=== PATIENT | female | born 1955 | race African-American/Black ===

== ENCOUNTER 2016-11-24 08:10 | Day surgery (SDC) | payer MEDICARE, MEDICAID ==
[~2016-11-24] VITALS: Ht 167.6 cm; Wt 62.1 kg
[2016-11-24] MEDS ORDERED: ASPI-1159 PO (08:35)
[2016-11-24] MEDS ORDERED: CINA30 PO (08:35)
[2016-11-24] MEDS ORDERED: MINO2.5T19 PO (08:35)
[2016-11-24] MEDS ORDERED: TEMA30CA PO (08:35)
[2016-11-24] MEDS ORDERED: AMIO100T4 PO (08:35)
[2016-11-24] MEDS ORDERED: HYDR-4133 PO (08:35)
[2016-11-24] MEDS ORDERED: CLON2TAB4 PO (08:35)
[2016-11-24] MEDS ORDERED: SEVE800T8 PO (08:35)
[2016-11-24] MEDS ORDERED: OMEP20CA10 PO (08:35)
[2016-11-24] MEDS ORDERED: DOCU-150 PO (08:35)
[2016-11-24] MEDS ORDERED: DILT240C92 PO (08:35)
[2016-11-24] MEDS ORDERED: DEXL30CA3 PO (08:44)
[2016-11-24] MEDS ORDERED: OCD PO (08:46)
[2016-11-24 09:32] LABS: EOSINOPHILS % 4.2 % (0.0-5.0); HEMATOCRIT. 36.9 % (36.0-48.0); HEMOGLOBIN. 12.4 g/dL (12.0-16.0); LYMPHOCYTES % 29.8 % (20.0-50.0); MEAN CORPUSCULAR HEMOGLOBIN 32.4 pg (28.0-32.0); MEAN CORPUSCULAR VOLUME 96.6 fL (81.0-99.0); MEAN PLATELET VOLUME 8.5 fl (7.4-10.4); MONOCYTES % 11.3 % (2.0-8.0); NEUTROPHILS % 53.7 % (40.0-76.0); PLATELET 136 x1000/uL (130-400); RED BLOOD CELL COUNT 3.82 mill/uL (4.2-5.4); RED CELL DISTRIBUTION WIDTH 14.5 % (11.6-14.6)
[2016-11-24] MEDS ORDERED: SODIUM CHLORIDE 0.9% 500 ML IV ONE (09:40)
[2016-11-24] MEDS ORDERED: PROPOFOL 200MG/20ML VIAL IV ONE (10:35)
[2016-11-24] MEDS ORDERED: LIDOCAINE HCL 1% 20ML VIAL (Pyxis) INJ ONE (10:35)
[2016-11-24] MEDS ORDERED: SIMETHICONE 40 MG/0.6 ML 30ML ONE (10:41)
[2016-11-24] MEDS ORDERED: MORPHINE SULFATE 2 MG/ML CPJ (NOT FOR IM USE) IV PRN (11:15)
== END 2016-11-24 12:05 | disposition home or self-care (01) ==
LOC: OR 08:10
PROVIDERS: ATTEND Internal Medicine Gastroenterology
DX: K29.50 Unspecified chronic gastritis without bleeding (principal); K21.9 Gastro-esophageal reflux disease without esophagitis; K44.9 Diaphragmatic hernia without obstruction or gangrene; I48.91 Unspecified atrial fibrillation; I50.9 Heart failure, unspecified; I12.0 Hypertensive chronic kidney disease with stage 5 chronic kidney disease or end stage renal disease; N18.6 End stage renal disease; F32.89 Other specified depressive episodes; Z86.73 Personal history of transient ischemic attack (TIA), and cerebral infarction without residual deficits
CPT/HCPCS: 36415; 43239; 80048; 85025; 88305; 88312; 88313; 93005; J3490; J7040; J2704

== ENCOUNTER 2018-11-17 14:43 | Inpatient (IN) | payer MEDICARE, MEDICAID ==
[~2018-11-17] VITALS: Ht 167.6 cm; Wt 64.5 kg
[~2018-11-17 14:43] MED LIST: AMIO100T4 PO; ASPI-1159 PO; CINA30 PO; CLON2TAB11 PO; DEXL30CA3 PO; DILT240C92 PO; DOCU-150 PO; HYDR-4133 PO; MINO2.5T19 PO; OCD PO; OMEP20CA10 PO; SEVE800T8 PO; TEMA30CA PO
[2018-11-17 15:45] LABS: EOSINOPHILS % 6.3 % (0.0-5.0); HEMATOCRIT. 29.3 % (36.0-48.0); HEMOGLOBIN. 9.7 g/dL (12.0-16.0); LYMPHOCYTES % 8.5 % (20.0-50.0); MEAN CORPUSCULAR HEMOGLOBIN 31.9 pg (28.0-32.0); MEAN CORPUSCULAR VOLUME 96.8 fL (81.0-99.0); MEAN PLATELET VOLUME 8.1 fl (7.4-10.4); MONOCYTES % 6.9 % (2.0-8.0); NEUTROPHILS % 78.3 % (40.0-76.0); PLATELET 263 x1000/uL (130-400); RED BLOOD CELL COUNT 3.02 mill/uL (4.2-5.4); RED CELL DISTRIBUTION WIDTH 14.8 % (11.6-14.6)
[2018-11-17 15:49] LABS: CHLORIDE 99 mEq/L (98-107)
[2018-11-17 15:51] LABS: INR 1.2
[2018-11-17] MEDS ORDERED: VANCOMYCIN 1 G PREMIX 200 ML IV NR (16:15)
[2018-11-17] MEDS ORDERED: PIPERACILLIN/TAZOBACTAM 3.375GM/50ML PREMIX IV ONE (16:15)
[2018-11-17] MEDS ORDERED: PIPERACILLIN/TAZ 3.375G PREMIX 50 ML IV NR (16:30)
[2018-11-17] MEDS ORDERED: SODIUM CHLORIDE 0.9% 1,000 ML IV ONE ×2 (18:15→19:15)
[2018-11-17] MEDS: HYDROCODONE/ACETAMINOPHEN 5/325MG TABLET PO PRN (20:51)
[2018-11-17] MEDS ORDERED: GUAIFENESIN 200MG/10ML SUGAR FREE UDC PO PRN (22:00)
[2018-11-17] MEDS ORDERED: IPRATROPIUM/ALBUTEROL 0.5-3(2.5)MG/3ML NEB INH PRN (22:00)
[2018-11-17] MEDS ORDERED: CLONIDINE 0.1MG TABLET PO PRN (22:00)
[2018-11-17] MEDS ORDERED: ONDANSETRON HCL 4MG/2ML INJ IV PRN (22:00)
[2018-11-17] MEDS ORDERED: DIPHENHYDRAMINE 50MG/ML VIAL IV PRN (22:00)
[2018-11-17] MEDS ORDERED: AMIO100T4 PO (23:03)
[2018-11-17] MEDS ORDERED: FAMO40TA70 MT (23:23)
[2018-11-17] MEDS ORDERED: CALC-1042 PO (23:23)
[2018-11-17] MEDS ORDERED: APIX2.5T MT (23:23)
[2018-11-17] MEDS ORDERED: DIPH50CA4 PO (23:23)
[2018-11-17] MEDS ORDERED: FOLI-43 MT (23:23)
[2018-11-17] MEDS ORDERED: DILT240T12 PO (23:23)
[2018-11-17] MEDS ORDERED: QUET25TA PO (23:23)
[2018-11-17] MEDS ORDERED: CALC667T2 MT (23:23)
[2018-11-17] MEDS ORDERED: AMBR5TAB3 PO (23:23)
[2018-11-17] MEDS ORDERED: AMBR5TAB3 MT (23:23)
[2018-11-17] MEDS ORDERED: CLON1TAB23 PO (23:23)
[2018-11-17] MEDS ORDERED: OMEG100020 PO (23:23)
[2018-11-17] MEDS ORDERED: CINA30 MT (23:23)
[2018-11-17 23:36] VITALS: BP 90/47
[2018-11-18] VITALS (11 sets, daily range): BP systolic 78–137; BP diastolic 38–77
[2018-11-18] MEDS ORDERED: EPOETIN ALFA 4000UNITS/ML VIAL SUBCUT SCH (03:00)
[2018-11-18] MEDS: SODIUM CHLORIDE 0.9% INJ 3ML FLUSH IVF SCH ×3 (06:00→22:06)
[2018-11-18] MEDS ORDERED: IPRATROPIUM/ALBUTEROL 0.5-3(2.5)MG/3ML NEB HHN PRN (12:15)
[2018-11-18] MEDS ORDERED: NON FORMULARY PATIENT HOME MED XX SCH (12:30)
[2018-11-18] MEDS: SEVELAMER CARBONATE 800 MG TABLET PO SCH ×2 (13:27→17:51)
[2018-11-18] MEDS: CINACALCET HCL 90MG TABLET PO SCH (13:27)
[2018-11-18] MEDS: APIXABAN 2.5 MG TABLET PO SCH ×2 (13:27→22:06)
[2018-11-18] MEDS: MIDODRINE HCL 5MG TABLET PO SCH ×2 (13:29→17:51)
[2018-11-18] MEDS: ACETAMINOPHEN 325MG TABLET PO PRN (13:37)
[2018-11-18 13:58] LABS: BG BASE EXCESS 0.5 mmol/L (-2.0-2.0); BG CARBOXYHEMOGLOBIN 0.3 % (0.5-1.5); BG DEOXYHEMOGLOBIN 5.5 % (0.0-5.0); BG FRACTION INSPIRED OXYGEN 100; BG HCO3 ACT 23.6 mmol/L (22.0-26.0); BG METHEMOGLOBIN 0.3 % (0.0-1.5); BG OXYGEN SATURATION 94.5 % (92.0-98.5); BG OXYHEMOGLOBIN 93.9 % (94.0-97.0); BG PCO2 32.4 mmHg (35.0-45.0); BG PO2 71.8 mmHg (75.0-100.0); BG SAMPLE SITE RIGHT BRACHIAL; BG TOTAL HEMOGLOBIN 10.3 g/dL (12.0-18.0); BG VENT MODE MASK - NRB
[2018-11-18] MEDS: FAMOTIDINE 20MG TABLET PO SCH (16:43)
[2018-11-18] MEDS: IPRATROPIUM/ALBUTEROL 0.5-3(2.5)MG/3ML NEB HHN SCH ×2 (17:29→20:14)
[2018-11-18] MEDS: BUDESONIDE 0.5MG/2ML NEB HHN SCH (20:14)
[2018-11-18] MEDS: CLONAZEPAM 1MG TABLET PO SCH (22:06)
[2018-11-19] VITALS (12 sets, daily range): BP systolic 101–131; BP diastolic 51–81
[2018-11-19] MEDS: IPRATROPIUM/ALBUTEROL 0.5-3(2.5)MG/3ML NEB HHN SCH ×6 (00:38→20:52)
[2018-11-19] MEDS: HYDROCODONE/ACETAMINOPHEN 5/325MG TABLET PO PRN ×2 (02:12→21:32)
[2018-11-19] MEDS: SODIUM CHLORIDE 0.9% INJ 3ML FLUSH IVF SCH ×3 (06:37→21:32)
[2018-11-19 07:06] LABS: BASOPHILS % 0.7 % (0.0-2.0); EOSINOPHILS % 7.2 % (0.0-5.0); HEMATOCRIT. 25.6 % (36.0-48.0); HEMOGLOBIN. 8.5 g/dL (12.0-16.0); LYMPHOCYTES % 10.2 % (20.0-50.0); MEAN PLATELET VOLUME 8.1 fl (7.4-10.4); MONOCYTES % 9.5 % (2.0-8.0); NEUTROPHILS % 72.4 % (40.0-76.0); PLATELET 243 x1000/uL (130-400); RED BLOOD CELL COUNT 2.67 mill/uL (4.2-5.4)
[2018-11-19 07:58] LABS: PHOSPHORUS 4.2 mg/dL (2.5-4.9)
[2018-11-19] MEDS: MIDODRINE HCL 5MG TABLET PO SCH ×3 (08:24→17:00)
[2018-11-19] MEDS: FAMOTIDINE 20MG TABLET PO SCH (08:25)
[2018-11-19] MEDS: CINACALCET HCL 90MG TABLET PO SCH (08:25)
[2018-11-19] MEDS: SEVELAMER CARBONATE 800 MG TABLET PO SCH ×3 (08:25→18:26)
[2018-11-19] MEDS: APIXABAN 2.5 MG TABLET PO SCH ×2 (08:25→21:30)
[2018-11-19] MEDS: BUDESONIDE 0.5MG/2ML NEB HHN SCH ×2 (09:25→20:51)
[2018-11-19 13:08] LABS: T4 FREE 1.35 ng/dL (0.76-1.46)
[2018-11-19] MEDS: ACETAMINOPHEN 325MG TABLET PO PRN (13:56)
[2018-11-19] MEDS: PIPERACILLIN/TAZ 2.25G PREMIX 50 ML IV SCH ×2 (15:00→21:29)
[2018-11-19] MEDS ORDERED: VANCOMYCIN 1250MG in DEXTROSE 5% WATER 250ML IV SCH (16:00)
[2018-11-19] MEDS ORDERED: SODIUM CHLORIDE 10% FOR INH 15ML VIAL NEB INH NR (17:30)
[2018-11-19] MEDS: FLUTICASONE PROPIONATE 50MCG/SPRAY BOTTLE BOTHNSTRLS SCH ×2 (21:00→21:29)
[2018-11-19] MEDS: CLONAZEPAM 1MG TABLET PO SCH (21:32)
[2018-11-19] MEDS: MAGNESIUM/ALUMINUM HYDROXIDE/SIMETHICONE 30ML UDC PO PRN (22:51)
[2018-11-19] MEDS ORDERED: DIGOXIN 250MCG TABLET PO NR (23:33)
[2018-11-19] MEDS: DILTIAZEM HCL 90MG TABLET PO SCH (23:41)
[2018-11-20] VITALS (28 sets, daily range): BP systolic 57–128; BP diastolic 38–76
[2018-11-20] MEDS: IPRATROPIUM/ALBUTEROL 0.5-3(2.5)MG/3ML NEB HHN SCH ×3 (00:32→07:44)
[2018-11-20 01:27] LABS: CREATINE KINASE 66 IU/L (26-192)
[2018-11-20 01:28] LABS: CREATINE KINASE MB FRACTION < 1.0 ng/mL (0.5-3.6)
[2018-11-20] MEDS: ACETAMINOPHEN 325MG TABLET PO PRN (01:30)
[2018-11-20] MEDS ORDERED: DIGOXIN 250MCG TABLET PO SCH (01:30)
[2018-11-20] MEDS: PIPERACILLIN/TAZ 2.25G PREMIX 50 ML IV SCH ×3 (05:58→22:04)
[2018-11-20] MEDS: SODIUM CHLORIDE 0.9% INJ 3ML FLUSH IVF SCH ×4 (06:00→22:16)
[2018-11-20 06:04] LABS: HEMATOCRIT. 27.8 % (36.0-48.0); HEMOGLOBIN. 9.1 g/dL (12.0-16.0); MEAN CORPUSCULAR HEMOGLOBIN 31.4 pg (28.0-32.0); MEAN CORPUSCULAR VOLUME 95.9 fL (81.0-99.0); MEAN PLATELET VOLUME 8.6 fl (7.4-10.4); PLATELET 272 x1000/uL (130-400); RED CELL DISTRIBUTION WIDTH 14.8 % (11.6-14.6)
[2018-11-20 06:58] LABS: CHLORIDE 101 mEq/L (98-107)
[2018-11-20 07:10] LABS: PHOSPHORUS 3.5 mg/dL (2.5-4.9)
[2018-11-20 07:13] LABS: CREATINE KINASE 60 IU/L (26-192)
[2018-11-20 07:16] LABS: CREATINE KINASE MB FRACTION < 1.0 ng/mL (0.5-3.6)
[2018-11-20] MEDS: BUDESONIDE 0.5MG/2ML NEB HHN SCH ×2 (07:43→20:42)
[2018-11-20] MEDS: DILTIAZEM HCL 90MG TABLET PO SCH (09:00)
[2018-11-20] MEDS: FLUTICASONE PROPIONATE 50MCG/SPRAY BOTTLE BOTHNSTRLS SCH ×2 (09:00→22:03)
[2018-11-20] MEDS: SEVELAMER CARBONATE 800 MG TABLET PO SCH ×3 (09:10→17:02)
[2018-11-20] MEDS: APIXABAN 2.5 MG TABLET PO SCH ×2 (09:10→22:04)
[2018-11-20] MEDS: FAMOTIDINE 20MG TABLET PO SCH (09:10)
[2018-11-20] MEDS: CINACALCET HCL 90MG TABLET PO SCH (09:10)
[2018-11-20] MEDS: MIDODRINE HCL 5MG TABLET PO SCH ×3 (09:10→17:02)
[2018-11-20] MEDS ORDERED: AMIODARONE HCL 200 MG TABLET PO SCH (12:00)
[2018-11-20 14:07] LABS: PLATELET ESTIMATE NORMAL
[2018-11-20] MEDS ORDERED: MAGNESIUM/ALUMINUM HYDROXIDE/SIMETHICONE 30ML UDC PO PRN (16:45)
[2018-11-20] MEDS: OMEPRAZOLE 20MG CAPSULE EXTENDED RELEASE PO SCH ×2 (17:01→22:03)
[2018-11-20] MEDS ORDERED: SODIUM CHLORIDE 0.9% 250 ML IV NR (17:45)
[2018-11-20] MEDS: IPRATROPIUM BROMIDE (0.02%) 0.5MG/2.5ML NEB HHN SCH ×3 (18:00→20:42)
[2018-11-20] MEDS ORDERED: DIGOXIN 250MCG TABLET PO NR (21:00)
[2018-11-20] MEDS: DILTIAZEM HCL 30MG TABLET PO SCH (22:03)
[2018-11-20] MEDS: CLONAZEPAM 1MG TABLET PO SCH (22:04)
[2018-11-20] MEDS: HYDROCODONE/ACETAMINOPHEN 5/325MG TABLET PO PRN (23:07)
[2018-11-21] VITALS (35 sets, daily range): BP systolic 62–123; BP diastolic 24–88
[2018-11-21] MEDS: IPRATROPIUM BROMIDE (0.02%) 0.5MG/2.5ML NEB HHN SCH ×4 (01:53→21:04)
[2018-11-21] MEDS: SODIUM CHLORIDE 0.9% INJ 3ML FLUSH IVF SCH ×3 (05:52→21:22)
[2018-11-21] MEDS: PIPERACILLIN/TAZ 2.25G PREMIX 50 ML IV SCH ×3 (05:52→21:22)
[2018-11-21 06:20] LABS: BASOPHILS % 0.4 % (0.0-2.0); EOSINOPHILS % 11.3 % (0.0-5.0); HEMATOCRIT. 27.5 % (36.0-48.0); LYMPHOCYTES % 8.4 % (20.0-50.0); MEAN CORPUSCULAR HEMOGLOBIN 31.3 pg (28.0-32.0); MEAN CORPUSCULAR VOLUME 95.7 fL (81.0-99.0); MEAN PLATELET VOLUME 8.2 fl (7.4-10.4); MONOCYTES % 9.6 % (2.0-8.0); NEUTROPHILS % 70.3 % (40.0-76.0); PLATELET 296 x1000/uL (130-400); RED BLOOD CELL COUNT 2.88 mill/uL (4.2-5.4); RED CELL DISTRIBUTION WIDTH 14.7 % (11.6-14.6)
[2018-11-21] MEDS: OMEPRAZOLE 20MG CAPSULE EXTENDED RELEASE PO SCH ×2 (08:49→21:04)
[2018-11-21] MEDS: CINACALCET HCL 90MG TABLET PO SCH (08:49)
[2018-11-21] MEDS: SEVELAMER CARBONATE 800 MG TABLET PO SCH ×3 (08:49→17:38)
[2018-11-21] MEDS: APIXABAN 2.5 MG TABLET PO SCH ×2 (08:50→21:07)
[2018-11-21] MEDS: MIDODRINE HCL 5MG TABLET PO SCH ×3 (08:50→17:38)
[2018-11-21] MEDS: DILTIAZEM HCL 30MG TABLET PO SCH ×2 (08:51→20:05)
[2018-11-21] MEDS: FLUTICASONE PROPIONATE 50MCG/SPRAY BOTTLE BOTHNSTRLS SCH ×3 (08:52→21:04)
[2018-11-21] MEDS: BUDESONIDE 0.5MG/2ML NEB HHN SCH (09:10)
[2018-11-21] MEDS ORDERED: VANCOMYCIN 1250MG in DEXTROSE 5% WATER 250ML IV SCH (15:00)
[2018-11-21] MEDS: MAGNESIUM/ALUMINUM HYDROXIDE/SIMETHICONE 30ML UDC PO PRN (17:38)
[2018-11-21] MEDS: EPOETIN ALFA 4000UNITS/ML VIAL SUBCUT SCH (21:04)
[2018-11-21] MEDS: CLONAZEPAM 1MG TABLET PO SCH (21:04)
[2018-11-22] VITALS (14 sets, daily range): BP systolic 83–123; BP diastolic 43–72
[2018-11-22] MEDS: IPRATROPIUM BROMIDE (0.02%) 0.5MG/2.5ML NEB HHN SCH ×3 (02:36→21:38)
[2018-11-22] MEDS: SODIUM CHLORIDE 0.9% INJ 3ML FLUSH IVF SCH ×3 (05:15→23:40)
[2018-11-22] MEDS: PIPERACILLIN/TAZ 2.25G PREMIX 50 ML IV SCH ×3 (05:15→23:40)
[2018-11-22] MEDS: MAGNESIUM/ALUMINUM HYDROXIDE/SIMETHICONE 30ML UDC PO PRN (05:48)
[2018-11-22 07:18] LABS: BASOPHILS % 0.8 % (0.0-2.0); HEMATOCRIT. 21.7 % (36.0-48.0); HEMOGLOBIN. 7.2 g/dL (12.0-16.0); LYMPHOCYTES % 12.9 % (20.0-50.0); MEAN PLATELET VOLUME 8.2 fl (7.4-10.4); MONOCYTES % 11.2 % (2.0-8.0); NEUTROPHILS % 65.1 % (40.0-76.0); PLATELET 375 x1000/uL (130-400); RED BLOOD CELL COUNT 2.26 mill/uL (4.2-5.4); RED CELL DISTRIBUTION WIDTH 14.7 % (11.6-14.6)
[2018-11-22] MEDS: DILTIAZEM HCL 30MG TABLET PO SCH ×2 (08:15→21:00)
[2018-11-22] MEDS: APIXABAN 2.5 MG TABLET PO SCH ×2 (08:19→21:00)
[2018-11-22 08:31] LABS: BG CARBOXYHEMOGLOBIN 0.6 % (0.5-1.5); BG DEOXYHEMOGLOBIN 9.8 % (0.0-5.0); BG FRACTION INSPIRED OXYGEN 28; BG HCO3 ACT 28.1 mmol/L (22.0-26.0); BG METHEMOGLOBIN 0.3 % (0.0-1.5); BG OXYGEN SATURATION 90.1 % (92.0-98.5); BG OXYHEMOGLOBIN 89.3 % (94.0-97.0); BG PCO2 40.1 mmHg (35.0-45.0); BG PH 7.463 (7.350-7.450); BG PO2 58.3 mmHg (75.0-100.0); BG SAMPLE SITE RIGHT BRACHIAL; BG TOTAL HEMOGLOBIN 9.4 g/dL (12.0-18.0); BG VENT MODE NASAL CANNULA
[2018-11-22] MEDS: SEVELAMER CARBONATE 800 MG TABLET PO SCH ×3 (08:34→18:48)
[2018-11-22] MEDS: FLUTICASONE PROPIONATE 50MCG/SPRAY BOTTLE BOTHNSTRLS SCH (08:34)
[2018-11-22] MEDS: MIDODRINE HCL 5MG TABLET PO SCH ×3 (08:34→17:46)
[2018-11-22] MEDS: OMEPRAZOLE 20MG CAPSULE EXTENDED RELEASE PO SCH ×2 (08:37→21:00)
[2018-11-22 10:15] LABS: PHOSPHORUS 4.4 mg/dL (2.5-4.9)
[2018-11-22] MEDS ORDERED: VANCOMYCIN 1 G PREMIX 200 ML IV SCH (16:00)
[2018-11-22] MEDS: SUCRALFATE 1 G/10 ML UDC PO SCH ×2 (17:46→21:00)
[2018-11-22] MEDS: CLONAZEPAM 1MG TABLET PO SCH (21:00)
[2018-11-23] VITALS (14 sets, daily range): BP systolic 81–135; BP diastolic 53–91
[2018-11-23] MEDS: IPRATROPIUM BROMIDE (0.02%) 0.5MG/2.5ML NEB HHN SCH ×3 (02:00→22:03)
[2018-11-23] MEDS: PIPERACILLIN/TAZ 2.25G PREMIX 50 ML IV SCH ×3 (05:20→21:52)
[2018-11-23] MEDS: SODIUM CHLORIDE 0.9% INJ 3ML FLUSH IVF SCH ×3 (05:23→21:52)
[2018-11-23 07:00] LABS: HEMATOCRIT 28.5 % (36.0-48.0); HEMOGLOBIN 9.5 g/dL (12.0-16.0); MEAN CORPUSCULAR HEMOGLOBIN 31.8 pg (28.0-32.0); MEAN CORPUSCULAR VOLUME 95.5 fL (81.0-99.0); PLATELET 314 x1000/uL (130-400); RED BLOOD CELL COUNT 2.99 mill/uL (4.2-5.4); RED CELL DISTRIBUTION WIDTH 14.5 % (11.6-14.6)
[2018-11-23] MEDS: DILTIAZEM HCL 30MG TABLET PO SCH (09:00)
[2018-11-23] MEDS: MIDODRINE HCL 5MG TABLET PO SCH ×3 (09:00→17:31)
[2018-11-23 09:10] LABS: IMMUNOGLOBULIN A 378 mg/dL (87-352); IMMUNOGLOBULIN G 1786 mg/dL (700-1600); IMMUNOGLOBULIN M 218 mg/dL (26-217)
[2018-11-23] MEDS: SUCRALFATE 1 G/10 ML UDC PO SCH ×4 (10:08→21:50)
[2018-11-23] MEDS: OMEPRAZOLE 20MG CAPSULE EXTENDED RELEASE PO SCH ×2 (10:10→21:51)
[2018-11-23] MEDS: APIXABAN 2.5 MG TABLET PO SCH ×2 (10:10→21:51)
[2018-11-23] MEDS: SEVELAMER CARBONATE 800 MG TABLET PO SCH ×3 (10:10→17:31)
[2018-11-23] MEDS: ACETAMINOPHEN 325MG TABLET PO PRN (10:12)
[2018-11-23] MEDS ORDERED: DIGOXIN 250MCG TABLET PO SCH (19:30)
[2018-11-23] MEDS: CLONAZEPAM 1MG TABLET PO SCH (21:50)
[2018-11-23] MEDS: EPOETIN ALFA 4000UNITS/ML VIAL SUBCUT SCH (21:52)
[2018-11-24] VITALS (10 sets, daily range): BP systolic 114–134; BP diastolic 56–78
[2018-11-24] MEDS: IPRATROPIUM BROMIDE (0.02%) 0.5MG/2.5ML NEB HHN SCH ×3 (03:11→13:10)
[2018-11-24] MEDS: PIPERACILLIN/TAZ 2.25G PREMIX 50 ML IV SCH ×2 (06:04→13:00)
[2018-11-24] MEDS: SODIUM CHLORIDE 0.9% INJ 3ML FLUSH IVF SCH ×2 (06:05→13:00)
[2018-11-24] MEDS: MIDODRINE HCL 5MG TABLET PO SCH ×2 (08:17→12:52)
[2018-11-24] MEDS: SUCRALFATE 1 G/10 ML UDC PO SCH ×2 (08:17→12:51)
[2018-11-24] MEDS: APIXABAN 2.5 MG TABLET PO SCH (08:17)
[2018-11-24] MEDS: OMEPRAZOLE 20MG CAPSULE EXTENDED RELEASE PO SCH (08:18)
[2018-11-24] MEDS: SEVELAMER CARBONATE 800 MG TABLET PO SCH ×2 (08:18→12:54)
[2018-11-24] MEDS ORDERED: DILTIAZEM HCL 30MG TABLET PO SCH (09:00)
[2018-11-24] MEDS ORDERED: MIDO10TA MT (22:09)
[2018-11-24] MEDS ORDERED: PROT40 MT (22:18)
[2018-11-25] MEDS ORDERED: DIGOXIN 125MCG TABLET PO SCH (09:00)
[2018-11-25 13:11] LABS: ANGIOTENSION CONVERTING ENZYME 39 U/L (14-82)
[2018-11-25 15:14] LABS: A/G RATIO 0.6 (0.7-1.7); ALBUMIN 3.2 g/dL (2.9-4.4); ALPHA-1-GLOBULIN 0.7 g/dL (0.0-0.4); ALPHA-2-GLOBULIN 1.3 g/dL (0.4-1.0); BETA GLOBULIN 1.2 g/dL (0.7-1.3); GAMMA GLOBULINS 2.1 g/dL (0.4-1.8); GLOBULIN TOTAL 5.2 g/dL (2.2-3.9); M-SPIKE Not Observed g/dL (Not Observed); TOTAL PROTEIN SERUM 8.4 g/dL (6.0-8.5)
== END 2018-11-24 16:05 | DRG 871 ==
LOC: ER 14:43 → 5EST 16:40 → EDBEDREQSVC 16:41 → EDBEDREQ 16:41 → ENRESERV 20:55
PROVIDERS: ADMIT Internal Medicine; ATTEND Internal Medicine
PROC: 5A1D70Z Performance of Urinary Filtration, Intermittent, Less than 6 Hours Per Day (ICD-10-PCS; 2018-11-20)
PROC: 5A1D70Z Performance of Urinary Filtration, Intermittent, Less than 6 Hours Per Day (ICD-10-PCS; 2018-11-21)
PROC: 5A1D70Z Performance of Urinary Filtration, Intermittent, Less than 6 Hours Per Day (ICD-10-PCS; principal; 2018-11-22)
DX: A41.9 Sepsis, unspecified organism (principal); N18.6 End stage renal disease; J96.01 Acute respiratory failure with hypoxia; J18.9 Pneumonia, unspecified organism; I50.33 Acute on chronic diastolic (congestive) heart failure; E87.2 Acidosis; I48.1 Persistent atrial fibrillation; N25.81 Secondary hyperparathyroidism of renal origin; I13.2 Hypertensive heart and chronic kidney disease with heart failure and with stage 5 chronic kidney disease, or end stage renal disease; D64.9 Anemia, unspecified; D72.1 Eosinophilia; E83.39 Other disorders of phosphorus metabolism; F41.9 Anxiety disorder, unspecified; G47.00 Insomnia, unspecified; H40.9 Unspecified glaucoma; E83.52 Hypercalcemia; J00 Acute nasopharyngitis [common cold]; I27.20 Pulmonary hypertension, unspecified; I48.0 Paroxysmal atrial fibrillation; I48.2 Chronic atrial fibrillation; I95.89 Other hypotension; J40 Bronchitis, not specified as acute or chronic; K21.9 Gastro-esophageal reflux disease without esophagitis; M19.90 Unspecified osteoarthritis, unspecified site; Z79.01 Long term (current) use of anticoagulants; Z79.899 Other long term (current) drug therapy; Z85.528 Personal history of other malignant neoplasm of kidney; Z99.2 Dependence on renal dialysis; Z86.73 Personal history of transient ischemic attack (TIA), and cerebral infarction without residual deficits; Z87.891 Personal history of nicotine dependence; Z88.5 Allergy status to narcotic agent; Z90.5 Acquired absence of kidney; Z79.82 Long term (current) use of aspirin
CPT/HCPCS: 36415; 36600; 71045; 78582; 80048; 80061; 80202; 82164; 82330; 82375; 82550; 82553; 82784; 82805; 83036; 83605; 83735; 83880; 83970; 84100; 84155; 84165; 84439; 84443; 84484; 85027; 85379; 86334; 87070; 87804; 93005; 93306; 93970; 94640; 96365; 96366; 96368; 97162; 97166; 99285; A9558; J0885; J2405; J2543; J3370; J7030; J7040; J7050; J7060; J7131; J7620; J7626

== ENCOUNTER 2018-11-24 16:30 | Inpatient (IN) | payer MEDICARE, MEDICAID ==
[~2018-11-24] VITALS: Ht 167.6 cm; Wt 64.0 kg
[~2018-11-24 16:30] MED LIST changes: +AMBR5TAB3 MT; +APIX2.5T MT; -ASPI-1159 PO; +CALC-1042 PO; +CALC667T2 MT; +CINA30 MT; -CINA30 PO; +CLON1TAB23 PO; -CLON2TAB11 PO; -DEXL30CA3 PO; -DILT240C92 PO; +DILT240T12 PO; +DIPH50CA4 PO; +FAMO40TA70 MT; +FOLI-43 MT; -HYDR-4133 PO; -MINO2.5T19 PO; -OCD PO; +OMEG100020 PO; -OMEP20CA10 PO; +QUET25TA PO
[2018-11-24 16:50] VITALS: BP 131/77
[2018-11-24 20:00] VITALS: BP 133/74
[2018-11-24] MEDS ORDERED: DIPHENHYDRAMINE 25MG CAPSULE PO PRN (21:30)
[2018-11-24] MEDS ORDERED: ONDANSETRON HCL 4MG TABLET PO PRN (21:30)
[2018-11-24] MEDS ORDERED: ACETAMINOPHEN 650MG/20.3ML UDC PO PRN (21:30)
[2018-11-24] MEDS ORDERED: GUAIFENESIN 200MG/10ML SUGAR FREE UDC PO PRN (21:30)
[2018-11-24] MEDS ORDERED: MAGNESIUM/ALUMINUM HYDROXIDE/SIMETHICONE 30ML UDC PO PRN ×2 (21:30)
[2018-11-24] MEDS ORDERED: CLONIDINE 0.1MG TABLET PO PRN (21:30)
[2018-11-24] MEDS ORDERED: IPRATROPIUM/ALBUTEROL 0.5-3(2.5)MG/3ML NEB HHN PRN (21:30)
[2018-11-24] MEDS ORDERED: MIDO10TA MT (22:09)
[2018-11-24] MEDS ORDERED: PROT40 MT (22:18)
[2018-11-24] MEDS: APIXABAN 2.5 MG TABLET PO SCH (23:35)
[2018-11-24] MEDS: PIPERACILLIN/TAZ 2.25G PREMIX 50 ML IV SCH (23:36)
[2018-11-25] MEDS: IPRATROPIUM BROMIDE (0.02%) 0.5MG/2.5ML NEB HHN SCH ×4 (00:58→14:45)
[2018-11-25] MEDS: PIPERACILLIN/TAZ 2.25G PREMIX 50 ML IV SCH ×2 (06:07→15:01)
[2018-11-25] MEDS: SUCRALFATE 1 G/10 ML UDC PO SCH ×3 (06:08→17:00)
[2018-11-25] MEDS ORDERED: OMEPRAZOLE 20MG CAPSULE EXTENDED RELEASE PO SCH (08:00)
[2018-11-25 08:39] VITALS: BP 126/78
[2018-11-25] MEDS ORDERED: DILTIAZEM HCL 30MG TABLET PO SCH (09:00)
[2018-11-25] MEDS: SEVELAMER CARBONATE 800 MG TABLET PO SCH ×3 (10:13→17:00)
[2018-11-25] MEDS: APIXABAN 2.5 MG TABLET PO SCH (10:14)
[2018-11-25] MEDS: MIDODRINE HCL 5MG TABLET PO SCH ×3 (10:14→17:00)
[2018-11-25] MEDS ORDERED: NON FORMULARY PATIENT HOME MED XX SCH (16:45)
[2018-11-25] MEDS ORDERED: BUDESONIDE 0.5MG/2ML NEB HHN SCH (18:00)
[2018-11-26] MEDS ORDERED: EPOETIN ALFA 4000UNITS/ML VIAL SUBCUT SCH (21:00)
== END 2018-11-25 19:45 | disposition left against medical advice (07) | DRG 189 ==
PROVIDERS: ADMIT Psychiatry & Neurology Neurology; ATTEND Internal Medicine
DX: J96.00 Acute respiratory failure, unspecified whether with hypoxia or hypercapnia (principal); J18.9 Pneumonia, unspecified organism; A41.9 Sepsis, unspecified organism; N18.6 End stage renal disease; I50.33 Acute on chronic diastolic (congestive) heart failure; J44.0 Chronic obstructive pulmonary disease with (acute) lower respiratory infection; N25.81 Secondary hyperparathyroidism of renal origin; I13.2 Hypertensive heart and chronic kidney disease with heart failure and with stage 5 chronic kidney disease, or end stage renal disease; I50.9 Heart failure, unspecified; K21.9 Gastro-esophageal reflux disease without esophagitis; I27.22 Pulmonary hypertension due to left heart disease; D72.1 Eosinophilia; I48.91 Unspecified atrial fibrillation; M19.90 Unspecified osteoarthritis, unspecified site; E83.52 Hypercalcemia; D63.8 Anemia in other chronic diseases classified elsewhere; I95.9 Hypotension, unspecified; R53.81 Other malaise; I25.10 Atherosclerotic heart disease of native coronary artery without angina pectoris; E11.22 Type 2 diabetes mellitus with diabetic chronic kidney disease; Z53.21 Procedure and treatment not carried out due to patient leaving prior to being seen by health care provider; Z99.2 Dependence on renal dialysis; Z79.01 Long term (current) use of anticoagulants; Z86.73 Personal history of transient ischemic attack (TIA), and cerebral infarction without residual deficits; Z79.899 Other long term (current) drug therapy; Z90.5 Acquired absence of kidney
CPT/HCPCS: 36415; 80202; 97162; 97167; 97535; C1893; J2543; J7040; J7620; J7626

== ENCOUNTER → 2022-08-22 | Outpatient (CLI) | payer MEDICARE, MEDICAID ==
[~2022-08-22] MED LIST changes: -DILT240T12 PO; -DIPH50CA4 PO; +DIPH50CA41 PO; -FAMO40TA70 MT; +MIDO10TA MT; +PROT40 MT; -QUET25TA PO; +REGADENOSON 0.4 MG/5 ML IV ONE
== END | disposition home or self-care (01) ==
LOC: NM 08-15 10:41
PROVIDERS: ATTEND Internal Medicine Cardiovascular Disease
DX: N18.9 Chronic kidney disease, unspecified (principal); I48.91 Unspecified atrial fibrillation
CPT/HCPCS: 78452; 93017; A9500; J2785